=== PATIENT | female | born 1980 | race Caucasian/White ===

== ENCOUNTER 2016-09-27 12:08 | Emergency (ER) | payer OTHER ==
[2016-09-27 13:07] LABS: URINE BILIRUBIN NEGATIVE (NEGATIVE); URINE BLOOD TRACE (NEGATIVE); URINE GLUCOSE (UA) NEGATIVE (NEGATIVE); URINE LEUKOCYTE ESTERASE TRACE (NEGATIVE); URINE NITRITE NEGATIVE (NEGATIVE); URINE PROTEIN NEGATIVE (NEGATIVE); URINE UROBILINOGEN NORMAL (0-1 mg/dl)
[2016-09-27 13:08] LABS: URINE APPEARANCE CLEAR; URINE COLOR YELLOW
[2016-09-27 13:09] LABS: HCG,QUALITATIVE URINE NEGATIVE
[2016-09-27] MEDS ORDERED: ONDANSETRON 4 MG/2ML 2 ML VIAL ONE (13:19)
[2016-09-27] MEDS ORDERED: LACTATED RINGERS 1,000 ML ONE (13:19)
[2016-09-27] MEDS ORDERED: MAALOX/LIDO2%VISC/SIMETHICONE 40 ML BOT ONE (13:19)
[2016-09-27 13:27] LABS: URINE BACTERIA 0; URINE WBC NEG /hpf
[2016-09-27 13:39] LABS: ABSOLUTE NEUTROPHIL COUNT 9.9 K/mm3 (1.8-7.7); BASO # 0.1 K/mm3 (0.0-0.2); BASO % 0.4 % (0.2-1.0); EOS # 0.3 (0.0-0.5); EOS % 2.3 % (0.9-2.9); HEMATOCRIT 39.5 % (37.0-47.0); HEMOGLOBIN 12.7 gm/l (12.0-16.0); IMM NEUT # 0.1 K/mm3 (0-0.2); IMM NEUT% 0.4 % (0-1); LYMPH # 1.7 (1.0-4.8); MEAN CELL VOLUME 84.8 fl (81.0-99.0); MEAN CORPUSCULAR HEMOGLOBIN 27.3 pg (27.0-31.0); MEAN CORPUSCULAR HGB CONC 32.2 g/dl (33.0-37.0); MEAN PLATELET VOLUME 9.7 fl (7.4-10.4); MONO # 0.8 (0.0-0.8); MONO % 6.6 % (4-12); NEUT % 77.3 % (43-75); PLATELET COUNT 429 K/mm3 (130-400); RED CELL DISTRIBUTION WIDTH 15.2 % (11.5-14.5)
[2016-09-27 13:50] LABS: ALB/GLOB RATIO 1.3 (>1.0); ALBUMIN 4.4 gm/dL (3.5-5.7); CALCIUM 9.5 mg/dL (8.6-10.3)
== END 2016-09-27 14:43 | disposition home or self-care (01) ==
LOC: ED 12:08
DX: R19.7 Diarrhea, unspecified (principal); R10.13 Epigastric pain; E86.0 Dehydration; Z79.899 Other long term (current) drug therapy; Z88.5 Allergy status to narcotic agent